=== PATIENT | female | born 2000 | race Two or more races ===

== ENCOUNTER 2023-07-01 22:58 | Emergency (ER) | payer BC, OTHER ==
[~2023-07-01] VITALS: Ht 167.6 cm; Wt 72.6 kg
[2023-07-01 23:22] VITALS: BP 149/78; TEMP 98.8; O2SAT 98
[2023-07-01] MEDS ORDERED: IBUP-1953 PO (23:45)
[2023-07-01] MEDS ORDERED: ACETAMINOPHEN ES 500 MG TABLET ONE (23:50)
[2023-07-01] MEDS ORDERED: IBUPROFEN 400 MG TABLET ONE (23:50)
[2023-07-01] MEDS ORDERED: IBUPROFEN 600 MG TABLET ONE (23:52)
[2023-07-01] MEDS: ACETAMINOPHEN ES 500 MG TABLET PO ONE (23:54)
[2023-07-01] MEDS: IBUPROFEN 600 MG TABLET PO ONE (23:54)
== END 2023-07-01 23:58 | disposition home or self-care (01) ==
LOC: ER 23:00
DX: S80.12XA Contusion of left lower leg, initial encounter (principal); S80.11XA Contusion of right lower leg, initial encounter; V49.9XXA Car occupant (driver) (passenger) injured in unspecified traffic accident, initial encounter; Y93.89 Activity, other specified; Y92.89 Other specified places as the place of occurrence of the external cause; Y99.8 Other external cause status